=== PATIENT | female | born 1995 | race African-American/Black ===

== ENCOUNTER 2019-04-24 12:36 | Emergency (ER) | payer SELFPAY ==
[~2019-04-24] VITALS: Ht 172.7 cm; Wt 183.0 kg
[2019-04-24] MEDS ORDERED: IV NORMAL SALINE 1,000ML 1,000 ML IV SCH (12:55)
[2019-04-24] MEDS ORDERED: ONDANSETRON PF 4 MG/2 ML VIAL. IVP ONE (13:00)
--- NOTE | 2019-04-24 13:03 | PHYS DOC ---
Adult General Chief Complaint Chief Complaint: NAUSEA/VOMITING/DIARRHEA HPI HPI Patient is a 24-year-old female who presents with complaint of nausea with vomiting and diarrhea that started a few days ago. Patient states that she has been having difficulty with keeping things down. She states that she has had some burning in her chest that she thinks is from all the vomiting. She denies any shortness of breath. Patient also indicates that she's had abdominal cramping that seems associated with the diarrhea. Patient rates the cramping as moderate.[] Review of Systems Review of Systems Constitutional: Denies fever or chills [] Respiratory: Denies cough or shortness of breath [] Cardiovascular: No additional information not addressed in HPI [] GI: Positive abdominal cramping with vomiting and diarrhea [] : Denies dysuria or hematuria [] Integument: Denies rash or skin lesions [] Neurologic: Denies headache, focal weakness or sensory changes [] All other systems were reviewed and found to be within normal limits, except as documented in this note. Current Medications Current Medications Current Medications Medications (Trade) Dose Ordered Sig/Anai Start Time Stop Time Status Last Admin Dose Admin Ondansetron HCl (Zofran) 4 mg 1X ONCE 04/24/19 13:00 04/24/19 13:01 UNV Sodium Chloride 1,000 ml @ 1,000 mls/hr Q1H 04/24/19 12:55 04/24/19 13:54 UNV Physical Exam Physical Exam Constitutional: Well developed, well nourished, no acute distress, non-toxic appearance. [] HENT: Normocephalic, atraumatic, bilateral external ears normal, oropharynx moist, no oral exudates, nose normal. [] Eyes: PERRLA, EOMI, conjunctiva normal, no discharge. [] Neck: Normal range of motion, no tenderness, supple, no stridor. [] Cardiovascular:Heart rate regular rhythm, no murmur [] Lungs & Thorax: Bilateral breath sounds clear to auscultation [] Abdomen: Bowel sounds normal, soft, no tenderness. [] Skin: Warm, dry, no erythema, no rash. [] Extremities: No tenderness, no cyanosis, no clubbing, ROM intact. [] Neurologic: Alert and oriented X 3, no focal deficits noted. [] EKG EKG [] Radiology/Procedures Radiology/Procedures [] Course & Med Decision Making Course & Med Decision Making Pertinent Labs and Imaging studies reviewed. (See chart for details) [] Dragon Disclaimer Dragon Disclaimer This electronic medical record was generated, in whole or in part, using a voice recognition dictation system. Departure Departure: Impression: Primary Impression: Gastroenteritis Additional Impression: Hyperglycemia Disposition: HOME, SELF-CARE Condition: STABLE Referrals: PCP,NO (PCP) Patient Instructions: Hyperglycemia, Viral Gastroenteritis Scripts Ondansetron (ONDANSETRON ODT) 4 Mg Tab.rapdis 1 TAB PO PRN Q6-8HRS PRN for NAUSEA, #12 TAB Prov: CHILANGO DAWKINS Jr. DO 04/24/19 Diphenoxylate Hcl/Atropine (LOMOTIL TABLET) 1 Each Tablet 1 TAB PO TID PRN for DIARRHEA, #15 TAB Prov: CHILANGO DAWKINS Jr. DO 04/24/19 Problem Qualifiers CHILANGO DAWKINS Jr. DO Apr 24, 2019 13:03
[2019-04-24] MEDS ORDERED: ONDANSETRON PF 4 MG/2 ML VIAL. ONE (13:23)
[2019-04-24 13:36] LABS: BASO # 0.1 x10^3/uL (0.0-0.2); BASO % 1 % (0-3); EOS % 0 % (0-3); HEMATOCRIT 40.9 % (36.0-47.0); HEMOGLOBIN 13.7 g/dL (12.0-15.5); LYMPH # 2.5 x10^3/uL (1.0-4.8); LYMPH % 29 % (24-48); MEAN CORPUSCULAR HEMOGLOBIN 26 pg (25-35); MEAN CORPUSCULAR HGB CONC 34 g/dL (31-37); MEAN CORPUSCULAR VOLUME 78 fL (79-100); MONO # 0.5 x10^3/uL (0.0-1.1); MONO % 6 % (0-9); NEUT # 5.5 x10^3uL (1.8-7.7); NEUT % 64 % (31-73); PLATELET COUNT 278 x10^3/uL (140-400); RED BLOOD COUNT 5.26 x10^6/uL (3.50-5.40); RED CELL DISTRIBUTION WIDTH 16.4 % (11.5-14.5); WHITE BLOOD COUNT 8.7 x10^3/uL (4.0-11.0)
[2019-04-24 13:45] LABS: CALCIUM 8.9 mg/dL (8.5-10.1); CREATININE 0.9 mg/dL (0.6-1.0); GFR 92.3; POTASSIUM 4.5 mmol/L (3.5-5.1)
[2019-04-24 13:51] LABS: ALBUMIN 3.2 g/dL (3.4-5.0); TOTAL BILIRUBIN 0.2 mg/dL (0.2-1.0); TOTAL PROTEIN 6.5 g/dL (6.4-8.2)
[2019-04-24] MEDS ORDERED: DIPH1TAB PO (14:27)
[2019-04-24] MEDS ORDERED: ONDA4TAB12 PO (14:27)
[2019-04-24 14:45] VITALS: BP 155/82
--- NOTE | 2019-04-24 18:01 | EKG ---
[address] [address] Test Date: 2019-04-24 Test Time: 12:50:19 Pat Name: DERIAN AGUIRRE Department: Room: Gender: F Consumer Lending Manager: : 1995 Requested By: CHILANGO DAWKINS Order Number: [id number] Reading MD: Measurements Intervals Branch Rate: 105 P: 42 TX: 142 QRS: 13 QRSD: 88 T: 30 QT: 322 QTc: 429 Interpretive Statements SINUS TACHYCARDIA OTHERWISE NORMAL ECG RI6.01 No previous ECG available for comparison
== END 2019-04-24 14:57 | disposition home or self-care (01) ==
LOC: ER 12:36
DX: K52.9 Noninfective gastroenteritis and colitis, unspecified (principal); R73.9 Hyperglycemia, unspecified
CPT/HCPCS: 36415; 80053; 85025; 93005; 96361; 96374; 99285; J2405; 99284-25; J7030

== ENCOUNTER 2019-10-20 02:37 | Emergency (ER) | payer SELFPAY ==
[~2019-10-20] VITALS: Ht 172.7 cm; Wt 172.7 kg
[~2019-10-20 02:37] MED LIST: DIPH1TAB PO; ONDA4TAB12 PO
--- NOTE | 2019-10-20 03:38 | PHYS DOC ---
Past History Past Medical History: Diabetes Past Surgical History: No Surgical History Alcohol Use: None General Adult HPI: HPI: " I was out dancing.. at my brother 's house.. about 7.. and hear a loud pop and I got really bad pain.. in my Lt. knee..." " It still hurts to walk.. " Patient is a 24.. year old female who presents with above hx and complaints of Lt knee injury. Patient localizes pain primarily in right medial collateral ligament and meniscus area. Does have point tenderness and medial collateral ligament and stress of medial collateral ligament exacerbates her pain. No significant anterior or posterior drawer. Patient is able to do straight leg lift. Is ambulatory with a limp. No previous injury to left knee. No recent travel. No history of fever chills. No history immunosuppression. Does have a history of morbid obesity. No history of STD symptoms. No history of IV drug use. Is on double control. Patient normally follows with Dr. Estrada Review of Systems: Review of Systems: Constitutional: Denies fever or chills Eyes: Denies change in visual acuity HENT: Denies nasal congestion or sore throat Respiratory: Denies cough or shortness of breath Cardiovascular: Denies chest pain or edema GI: Denies abdominal pain, nausea, vomiting, bloody stools or diarrhea : Denies dysuria Musculoskeletal: Denies back pain or joint pain Integument: Denies rash Neurologic: Denies headache, focal weakness or sensory changes Endocrine: Denies polyuria or polydipsia Lymphatic: Denies swollen glands Psychiatric: Denies depression or anxiety Heart Score: Risk Factors: Risk Factors: DM, Current or recent (<one month) smoker, HTN, HLP, family history of CAD, obesity. Risk Scores: Score 0 - 3: 2.5% MACE over next 6 weeks - Discharge Home Score 4 - 6: 20.3% MACE over next 6 weeks - Admit for Clinical Observation Score 7 - 10: 72.7% MACE over next 6 weeks - Early Invasive Strategies Family History: Family History: Noncontributory Current Medications: Current Meds: See nursing for home meds Allergies: Allergies: Allergies Coded Allergies Type Severity Reaction Last Updated Verified Sulfa (Sulfonamide Antibiotics) Allergy Unknown 04/24/19 Yes tramadol Allergy Unknown 04/24/19 Yes Physical Exam: PE: Constitutional: Moderate acute distress, non-toxic appearance. [] HENT: Normocephalic, atraumatic, bilateral external ears normal, oropharynx moist, no oral exudates, nose normal. [] Eyes: PERRLA, EOMI, conjunctiva normal, no discharge. [] Neck: Normal range of motion, no tenderness, supple, no stridor. [] Cardiovascular:Heart rate regular rhythm, no murmur [] Lungs & Thorax: Bilateral breath sounds equal at apex on auscultation [] Abdomen: Bowel sounds normal, soft, no tenderness, no masses, no pulsatile masses. Morbid obesity. Skin: Warm, dry, no erythema, no rash. [] Back: No tenderness, no CVA tenderness. [] Extremities: No tenderness, no cyanosis, no clubbing, ROM intact, no edema. [] Except findings and left knee as per HPI Neurologic: Alert and oriented X 3, normal motor function, normal sensory function, no focal deficits noted. [] Psychologic: Affect anxious, judgement normal, mood normal. [] EKG: EKG: [] Radiology/Procedures: Radiology/Procedures: [][place] [address] IMAGING REPORT Signed PATIENT: DERIAN AGUIRRE DACCOUNT: [id number] : 1995 LOCATION: ER AGE: 24 SEX: F EXAM STATUS: DEP ER ORD. PHYSICIAN: GINA CARUSO MD REASON: INJURY, PAIN PROCEDURE: KNEE LEFT 4V KNEE 4 VIEWS LEFT Clinical Indication: Reason: INJURY, PAIN / Spl. Instructions: / History: Comparison: None. Findings: There is no acute fracture or dislocation. The tricompartmental joint spaces are maintained. The patella is in anatomic position. No lateral tilt or subluxation of the patella. There is no soft tissue abnormality. There is no joint effusion. IMPRESSION: No acute fracture. Electronically signed by: Ole Arnold MD (10/20/2019 4:44 AM) [facility] DICTATED AND SIGNED BY: OLE ARNOLD MD DATE: 10/20/19 0444 CC: GINA CARUSO MD; ISABEL ESTRADA DO ~ Course & Med Decision Making: Course & Med Decision Making Pertinent Labs and Imaging studies reviewed. (See chart for details) Distal neurovascular intact after application of Nain wrap. Patient use crutches. Patient use ice packs. Patient elevate leg. Rest. Tylenol and ibuprofen for pain. For marked pain may take Vicoprofen. Follow-up primary care. Follow-up orthopedics. Repeat x-ray in 2 weeks if persistent pain. Return with any concerns. Impression: 1. Left medial collateral ligament strain/injury 2: Possible meniscus injury Lt Medial 3. Morbid obesity 4. Hx. DM [] Dragon Disclaimer: Dragon Disclaimer: This electronic medical record was generated, in whole or in part, using a voice recognition dictation system. Departure Departure: Disposition: HOME/RESIDENCE PRIOR TO ADM Condition: STABLE Referrals: ISABEL ESTRADA DO (PCP) Scripts Hydrocodone/Ibuprofen (HYDROCODONE-IBUPROFEN 7.5-200 ) 1 Each Tablet 1 TAB PO PRN Q6HRS PRN for PAIN, #30 TAB 0 Refills Prov: GINA CARUSO MD 10/20/19 Justification of Admission: Justification of Admission: Justification of Admission Dx: N/A Dragon Disclaimer This chart was dictated in whole or in part using Voice Recognition software in a busy, high-work load, and often noisy Emergency Department environment. It may contain unintended and wholly unrecognized errors or omissions. GINA CARUSO MD Oct 20, 2019 03:38
[2019-10-20] MEDS ORDERED: HYDR-1179 PO (03:43)
[2019-10-20] MEDS ORDERED: KETOROLAC 60 MG/2 ML VIAL. IM ONE (04:15)
[2019-10-20] MEDS ORDERED: oxyCODONE/APAP 5/325 1 TAB TABLET PO ONE (04:15)
[2019-10-20 04:25] VITALS: BP 114/85
--- NOTE | 2019-10-20 04:47 | RAD ---
KNEE 4 VIEWS LEFT Clinical Indication: Reason: INJURY, PAIN / Spl. Instructions: / History: Comparison: None. Findings: There is no acute fracture or dislocation. The tricompartmental joint spaces are maintained. The patella is in anatomic position. No lateral tilt or subluxation of the patella. There is no soft tissue abnormality. There is no joint effusion. IMPRESSION: No acute fracture. Electronically signed by: Ole Arnold MD (10/20/2019 4:44 AM) [facility]
== END 2019-10-20 04:00 | disposition home or self-care (01) ==
LOC: ER 02:37
DX: S89.92XA Unspecified injury of left lower leg, initial encounter (principal); E11.9 Type 2 diabetes mellitus without complications; Z88.2 Allergy status to sulfonamides; Z88.6 Allergy status to analgesic agent; X50.1XXA Overexertion from prolonged static or awkward postures, initial encounter; Y93.41 Activity, dancing; Y92.89 Other specified places as the place of occurrence of the external cause; Y99.8 Other external cause status
CPT/HCPCS: 73564; 96372; 99283; J1885